=== PATIENT | female | born 1965 | race Caucasian/White ===

== ENCOUNTER 2017-04-23 14:30 | Emergency (ER) | payer SELFPAY ==
[~2017-04-23] VITALS: Ht 172.7 cm; Wt 113.5 kg
[~2017-04-23 14:30] MED LIST: ALPR.5T PO; ALPR1TAB7 PO; BUTA1CAP39 PO; CEFU500T PO; CITA10TA70 PO; CITA20TA7 PO; DCS100C PO; DOXY100T2 PO; ESTR0.9T PO; HYDR-2890 PO; HYDR-3812 PO; HYDR-3820 PO; HYDR1TAB75 PO; IBP800T PO; MUCINEX NASAL SPRAY; RIVA15TA PO; RIVA20TA PO; TRAM50TA2 PO; ZOLP10TA5 PO
[2017-04-23] MEDS ORDERED: CITA20TA12 PO (14:46)
[2017-04-23] MEDS ORDERED: MELA5CAP PO (14:46)
--- NOTE | 2017-04-23 15:04 | ED Lower Extremity ---
General Chief Complaint: Lower Extremity Stated Complaint: RIGHT LEG PAIN,HX OF BLOOD CLOTS Nursing Triage Note: PT CO OF R LOWER EXT PAIN AND BURNING, STATES FEEL TIGHT WHEN WALKING AND A LITTLE SWELLING, STATES HAS HX OF PE AND BLOOD CLOT IN LOWER EXT Nursing Sepsis Screen: No Definite Risk Source: patient Exam Limitations: no limitations History of Present Illness Time seen by provider: 14:52 Initial Comments This 51-year-old white female presents with complaint pain and swelling in right calf similar to previous thrombophlebitis. Patient's lungs has had previous pulmonary emboli. Patient denies trauma, associated fever, paresthesias, or shortness of breath Allergies and Home Medications Allergies Coded Allergies: Sulfa (Sulfonamide Antibiotics) (Unverified Allergy, Unknown, 03/29/15) Home Medications Citalopram Hydrobromide 20 Mg Tablet, 20 MG PO, (Reported) Melatonin 5 Mg Capsule, 5 MG PO, (Reported) Rivaroxaban 20 Mg Tablet, 20 MG PO DAILY, (Reported) Constitutional: No chills, No fever EENTM: No blurred vision Respiratory: No cough, No short of breath Cardiovascular: No chest pain, No palpitations Gastrointestinal: No abdominal pain, No diarrhea, No nausea, No vomiting Genitourinary: no symptoms reported Musculoskeletal: No back pain Skin: no symptoms reported, No change in color, No rash Psychiatric/Neurological: No Symptoms Reported Past Xbaxyug-Yzyoxt-Cbpldd Hx Patient Social History Alcohol Use: Denies Use Recreational Drug Use: No Smoking Status: Former Smoker Type Used: Cigarettes Former Smoker, Quit: Aug 04, 2014 Recent Foreign Travel: No Contact w/Someone Who Travel: No Recent Infectious Disease Expo: No Recent Hopitalizations: No Physical Abuse: No Sexual Abuse: No Surgeries History of Surgeries: Yes (ULNAR NERVE RELEASE) Surgeries: Section, Hysterectomy, Oophorectomy, Orthopedic Respiratory History of Respiratory Disorde: Yes Respiratory Disorders: Pulmonary Embolism Currently Using CPAP: No Currently Using BIPAP: No Cardiovascular History of Cardiac Disorders: No (DVT r leg) Neurological History of Neurological Disord: No Reproductive System Hx Reproductive Disorders: Yes (CHRONIC PELVIC PAIN/MENORRHAGIA-S/P HYST) 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 Gastrointestinal History of Gastrointestinal Di: No Musculoskeletal History of Musculoskeletal Dis: Yes Musculoskeletal Disorders: Chronic Back Pain Endocrine History of Endocrine Disorders: No Cancer History of Cancer: No Psychosocial History of Psychiatric Problem: No Behavioral Health Disorders: Sleep Difficulties, Anxiety, Depression Suicide Risk Score: 0 Integumentary History of Skin or Integumenta: No Blood Transfusions History of Blood Disorders: No Reviewed Nursing Assessment Reviewed/Agree w Nursing PMH: Yes Family Medical History Family Medial History: Cardiovascular disease 19 FATHER (cabg) Hypertension 19 FATHER (htn & hypotention) Kidney disease 19 FATHER (renial failure) Neoplasm 19 FATHER (skin ca) Physical Exam Vital Signs Vital Sign - Last 12Hours 04/23/17 14:35 Temp 97.9 Pulse 73 Resp 18 B/P (MAP) 151/99 Pulse Ox 97 Capillary Refill : Less Than 3 Seconds General Appearance: WD/WN, no apparent distress HEENT: normal ENT inspection Neck: normal inspection Cardiovascular: regular rate, rhythm Respiratory: chest non-tender, lungs clear Gastrointestinal: normal bowel sounds, non tender Back: normal inspection Hips: bilateral hip non-tender, bilateral hip normal inspection, bilateral hip normal range of motion Legs: right leg soft tissue tenderness, right leg swelling Knees: bilateral knee non-tender, bilateral knee normal inspection Ankles: bilateral ankle non-tender, bilateral ankle normal inspection Feet: bilateral foot non-tender, bilateral foot normal inspection Neurologic/Tendon: normal sensation, normal motor functions, normal tendon functions Neurologic/Psychiatric: no motor/sensory deficits, alert, normal mood/affect Skin: warm/dry Lymphatic: no adenopathy Progress/Results/Core Measures Results/Orders My Orders Orders - LUIS CARLOS COOLEY MD Venous Lower Ext Rt (04/23/17 14:42) Vital Signs/I&O Vital Sign - Last 12Hours 04/23/17 14:35 Temp 97.9 Pulse 73 Resp 18 B/P (MAP) 151/99 Pulse Ox 97 Blood Pressure Mean: 116 Progress Note : Time: 15:45 Progress Note Ultrasound of the right leg was unremarkable. I discussed findings with patient. She declined any pain medication or further evaluation. Departure Impression Impression: Primary Impression: Pain in right lower leg Disposition: 01 HOME, SELF-CARE Condition: Unchanged Departure-Patient Inst. Decision time for Depature: 15:46 Referrals: NO,LOCAL PHYSICIAN (PCP) Primary Care Physician Add. Discharge Instructions: Heating pad to the right calf. Ibuprofen and/or Tylenol for pain. Return if any problems or questions. All discharge instructions reviewed with patient and /or family. Voiced understanding. LUIS CARLOS COOLEY MD Apr 23, 2017 15:04
--- NOTE | 2017-04-23 15:37 | Diagnostic Imaging Report ---
EXAMINATION: Right lower extremity duplex venous ultrasound. TECHNIQUE: DVT protocol. Multiple sonographic images with color Doppler and waveform interrogation were performed of the right lower extremity veins with compression and augmentation maneuvers. INDICATION: Right leg pain. FINDINGS: The right lower extremity veins from the groin to below the knee veins were examined with normal color-flow, compressibility and normal waveform demonstrated. The great saphenous vein is patent. IMPRESSION: No evidence of DVT in the right lower extremity. Dictated by: Dictated on workstation # [id number]
[2017-04-23 15:51] VITALS: BP 151/99
== END 2017-04-23 15:51 | disposition home or self-care (01) ==
LOC: EDUNIT# 14:30 → ER 14:33
DX: M79.604 Pain in right leg (principal); F41.9 Anxiety disorder, unspecified; F32.9 Major depressive disorder, single episode, unspecified; Z80.8 Family history of malignant neoplasm of other organs or systems; Z82.49 Family history of ischemic heart disease and other diseases of the circulatory system; Z86.72 Personal history of thrombophlebitis; Z79.01 Long term (current) use of anticoagulants; Z87.891 Personal history of nicotine dependence; Z87.59 Personal history of other complications of pregnancy, childbirth and the puerperium; Z90.710 Acquired absence of both cervix and uterus; Z86.711 Personal history of pulmonary embolism
CPT/HCPCS: 99283

== ENCOUNTER 2017-05-08 21:51 | Emergency (ER) | payer SELFPAY ==
[~2017-05-08] VITALS: Ht 172.7 cm; Wt 113.5 kg
[~2017-05-08 21:51] MED LIST changes: +CITA20TA12 PO; +MELA5CAP PO
--- OUTSIDE RECORDS SUMMARY | 2017-05-08 21:56 | XMS REPORT | Continuity of Care Document ---
Author Author [employer] Organization [facility] Address Unknown Phone Unavailable Care Team Providers Care Sewer Hand Name Role Phone [employer] Unavailable Unavailable Problems Medications Allergies, Adverse Reactions, Alerts Immunizations Results Vital Signs Encounters Location Location Details Encounter Type Encounter Number Reason For Visit Attending Provider ADM Date DC Date Status Source OUTPATIENT [id number] EKATERINA SIM 04/24/20162015 Active [facility] [place] SERIES [id number] LISSETH FRANCO 04/25/[address] [facility] OUTPATIENT [id number] YAMILETH SAUNDERS 09/16/2016 09/16/[address] [facility] Jasvir QUIROZ 05/18/[address] [facility] Procedures Plan of Care Social History Assessment and Plan Family History Value Date Source Advance Directives Order Name Results Value Date Source
--- OUTSIDE RECORDS SUMMARY | 2017-05-08 21:58 | XMS REPORT | Clinical Summary ---
Author Author [facility] Organization [facility] Address Unknown Phone Unavailable Care Team Providers Care Last Trimmer Name Role Phone PCP Unavailable Source Comments Some departments are not documenting in the electronic medical record. If you do not see the information that you expected, contact Release of Information in the Health Information Management department at [phone] for further assistance in locating additional records.[facility] Allergies Active Allergy Reactions Severity Noted Date Comments Sulfa (Sulfonamide HIVES, RASH Medium 04/05/2016 Antibiotics) Venlafaxine VOMITING Low 04/05/2016 Current Medications Prescription Sig. Disp. Refills Start End Date Status Date atorvastatin (LIPITOR) 40 Take 1 Tab by mouth 90 Tab 3 04/08/20 Active mg tablet daily. 16 melatonin 10 mg tab Take by mouth as Needed. Active citalopram (CELEXA) 10 mg Take 1 Tab by mouth 90 Tab 3 09/17/19 Active tablet daily. 17 rivaroxaban (XARELTO) 20 Take 1 Tab by mouth 90 Tab 3 09/23/19 Active mg tablet daily. Take with food. 17 Active Problems Problem Noted Date Dysuria 09/16/2016 History of deep venous thrombosis 04/24/2016 History of pulmonary embolism 04/24/2016 Overview: -On Xarelto, may need to switch to warfarin--will await hematology recs regarding anticoagulation moving forward if she does have APLS Chest pain on breathing 04/24/2016 Overview: -Given hx of PE after having similar presentation, will get CTA chest today to r/o recurrence of PE Hx of renal impairment 04/24/2016 Overview: -Cr increased while inpatient, was still 1.22 at time of discharge -Repeat BMP with UA on 04/24 to ensure resolution Visual field defect 04/24/2016 Overview: -Pt having numerous visual complaints -Consult placed for pt to see Dr. Clay for neuro-ophthalmology L ast Assessment & Plan: -Pt still having numerous visual complaints -Consult placed at last visit for pt to see Dr. Clay for neuro-ophthalmology, pt to schedule this appointment [facility]ORRI Antiphospholipid antibody syndrome (HCC) 04/21/2016 Overview: -Elevated antiphospholipid ab at 72. -Pt scheduled to see hematology for further eval 04-25-16-First heme clinic visit. Her complex history and labs support the diagnosis of APL syndrome though we do not have baseline labs from the time she had DVT/PE in September or October of this year. Nonetheless the evidence to me is overwhelming and I believe the diagnosis is correct. I advised her to stay on Xarelto even though we don't have complete studies showing the new generation of anticoagulants are non-inferior to warfarin in this setting. She hates warfarin and states her symptoms are better on Xarelto so for now I would leave her on it. I told her if she develops new evidence for venous thromboembolism and new RECORDS CLERK symptoms I would add ASA or plavix and consider switching her to warfarin. She will be following up with rheumatology to see if she fits any other defined syndrome for which immunosuppression might be indicated. L ast Assessment & Plan: -following in hematology clinic >Continue Xarelto Obesity, Class II, BMI 35-39.9 04/09/2016 Hypercholesteremia 04/08/2016 Overview: -Lipids 03/2016: Total chol 188, LDL 122, HDL 40, trig 122 -Atorvastatin 40mg L ast Assessment & Plan: -Lipids 03/2016: Total chol 188, LDL 122, HDL 40, trig 122 -Continue Atorvastatin 40mg Stroke (cerebrum) (FORM[facility]LY [facility]) 04/05/2016 Overview: -On Atorvastatin 40mg -BP well-controlled -Carotid u/s, echo, MRA head/neck unremarkable -has f/u with neurology on 05/09 Resolved Problems Problem Noted Date Resolved Date DVT (deep venous thrombosis) ([facility]) 04/08/2016 Encounters Date Type Specialty Care Team Description 04/23/2017 Telephone General Internal Medicine Vanessa Cunha MD Triage from Last 3 Months Immunizations Name Dates Previously Given Next Due Flu Vaccine 04/24/2016 Quadrivalent=>3 Yo (Preservative Free) Family History Medical History Relation Name Comments Heart Disease Father Kidney Disease Father Hypertension Mother Relation Name Status Comments Father Mother Social History Tobacco Use Types Packs/Day Years Used Date Former Smoker 04/24/2010 - 04/24/2015 Smokeless Tobacco: Never Used Alcohol Use Drinks/Week oz/Week Comments No 0 Standard 0.0 drinks or equivalent Sex Assigned at Date Recorded Not on file Last Filed Vital Signs Vital Sign Reading Time Taken Blood Pressure 147/88 09/16/2016 1:10 PM CDT Pulse 68 09/16/2016 1:10 PM CDT Temperature 36.4 C (97.5 F) 09/16/2016 1:10 PM CDT Respiratory Rate 16 09/16/2016 1:10 PM CDT Oxygen Saturation 98% 09/16/2016 1:10 PM CDT Inhaled Oxygen - - Concentration Weight 122.7 kg (270 lb 6.4 oz) 09/16/2016 1:10 PM CDT Height 175.3 cm (5' 9") 09/16/2016 1:10 PM CDT Body Mass Index 39.93 09/16/2016 1:10 PM CDT Plan of Treatment Health Maintenance Due Date Last Done Comments PERTUSSIS VACCINE 11/22/1978 TETANUS VACCINE 11/22/1984 BREAST CANCER SCREENING 2007 INFLUENZA VACCINE 01/20/2017 04/24/2016, 04/24/2016 PHYSICAL (COMPREHENSIVE) 04/24/2017 04/24/2016 EXAM Results Not on filefrom Last 3 Months
--- OUTSIDE RECORDS SUMMARY | 2017-05-08 21:58 | XMS REPORT | Encounter Summary ---
Author Author [facility] Organization [facility] Address Unknown Phone Unavailable Care Team Providers Care Clerical Adviser Name Role Phone PCP Unavailable Reason for Visit * Reason Comments Triage Encounter Details Date Type Department Care Team Description 04/23/2017 Telephone [facility] Vanessa Cunha MD Triage Physicians - Internal [address] [facility] [place] [address] [address]LO[address] [phone] [id number] [facility] [place] [address] Social History Tobacco Use Types Packs/Day Years Used Date Former Smoker 04/24/2010 - 04/24/2015 Smokeless Tobacco: Never Used Alcohol Use Drinks/Week oz/Week Comments No 0 Standard 0.0 drinks or equivalent Sex Assigned at Date Recorded Not on file as of this encounter Functional Status Functional Status Response Date of Assessment Does the patient have a hearing impairment: No 04/25/2016 Does the patient have a visual impairment: No 04/25/2016 Does the patient have impaired ambulation: No 04/25/2016 Does the patient have an activity of daily living No 04/25/2016 (ADL) impairment: Does the patient have an instrumental activity of No 04/25/2016 daily living (IADL) impairment: Cognitive Status Response Date of Assessment Does the patient have a cognitive impairment: No 04/25/2016 as of this encounter Miscellaneous Notes * Telephone Encounter - Shayy Jenkins LPN - 04/24/2017 2:55 PM CDT Contacted patient to follow-up. Patient stated she was evaluated in the ER and they did an ultra sound and no blood clot was found. Patient is still concerned with pain in her leg when she walks. Advised patient to make a follow-up visit to be evaluated in clinic. Patient agreed to be transferred to [facility] to set -up appointment. Routing to Dr. Cunha to inform. Shayy Jenkins LPN * Telephone Encounter - Vanessa Cunha MD - 04/23/2017 10:32 PM CDT Agree with recommendation to seek local ER evaluation. Thank you, Vanessa Cunha MD * Telephone Encounter - Shayy Jenkins LPN - 04/23/2017 2:07 PM CDT Pt LVM stating her history of PE, antiphospholipids syndrome DVT and stroke. Pt stated symptoms as follows: "Trouble with leg, don't know if I should go to ER in [place], don't know what to do. I am currently on xarelto. I cant walk very far before it starts hurting, not really swollen, gets real hard when I walk far and toes go numb. On the back side its really warm After last time scared to let it go to long." Patient requesting return call from nurse to advise. Returned patient call and advised patient to be seen in the ER. Inquired how long these symptoms have been going on and pt stated the past week but have worsened in the last couple of days. Patient denied swelling in the leg but stated "it gets real tight." Pt agreed to go to the emergency room to be evaluated. Pt inquired if she should come to [facility] or go to ER in [place]. Advised patient to go to ER in [place], as it is much closer. Gave patient nurse line to call back with any concerns. Pt verbalized understanding and no further questions at this time. Routing to Dr. Cunha to inform. Shayy Jenkins LPN in this encounter Plan of Treatment Not on fileas of this encounter Visit Diagnoses Not on filein this encounter
--- NOTE | 2017-05-08 22:14 | ED Lower Extremity ---
General Chief Complaint: Lower Extremity Stated Complaint: RT ANKLE INJ Nursing Triage Note: stepped off porch and twisted L ankle. Nursing Sepsis Screen: No Definite Risk Source: patient Exam Limitations: no limitations History of Present Illness Time seen by provider: 22:13 Initial Comments To ER with reports of left lateral ankle pain and right great toe pain. This began this evening when she stepped down off of her porch and twisted her ankle and felt a popping sensation. Onset: just prior to arrival Severity: moderate Pain/Injury Location: left ankle Method of Injury: fell, twisted Modifying Factors: Worse With Movement Allergies and Home Medications Allergies Coded Allergies: Sulfa (Sulfonamide Antibiotics) (Unverified Allergy, Unknown, 03/29/15) Home Medications Citalopram Hydrobromide 20 Mg Tablet, 20 MG PO, (Reported) Melatonin 5 Mg Capsule, 5 MG PO, (Reported) Rivaroxaban 20 Mg Tablet, 20 MG PO DAILY, (Reported) Constitutional: see HPI EENTM: see HPI Respiratory: no symptoms reported Cardiovascular: no symptoms reported Genitourinary: no symptoms reported Musculoskeletal: see HPI Skin: no symptoms reported Psychiatric/Neurological: No Symptoms Reported Past Nqiscok-Onjcdt-Cifmud Hx Patient Social History Alcohol Use: Denies Use Recreational Drug Use: No Smoking Status: Former Smoker Type Used: Cigarettes Former Smoker, Quit: Aug 04, 2014 Recent Foreign Travel: No Contact w/Someone Who Travel: No Recent Infectious Disease Expo: No Recent Hopitalizations: No Physical Abuse: No Sexual Abuse: No Surgeries History of Surgeries: Yes (ULNAR NERVE RELEASE) Surgeries: Section, Hysterectomy, Oophorectomy, Orthopedic Respiratory History of Respiratory Disorde: Yes Respiratory Disorders: Pulmonary Embolism Currently Using CPAP: No Currently Using BIPAP: No Cardiovascular History of Cardiac Disorders: No (DVT r leg) Neurological History of Neurological Disord: No Reproductive System Hx Reproductive Disorders: Yes (CHRONIC PELVIC PAIN/MENORRHAGIA-S/P HYST) 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 Gastrointestinal History of Gastrointestinal Di: No Musculoskeletal History of Musculoskeletal Dis: Yes Musculoskeletal Disorders: Chronic Back Pain Endocrine History of Endocrine Disorders: No Cancer History of Cancer: No Psychosocial History of Psychiatric Problem: No Behavioral Health Disorders: Sleep Difficulties, Anxiety, Depression Suicide Risk Score: 0 Integumentary History of Skin or Integumenta: No Blood Transfusions History of Blood Disorders: No Family Medical History Family Medial History: Cardiovascular disease 19 FATHER (cabg) Hypertension 19 FATHER (htn & hypotention) Kidney disease 19 FATHER (renial failure) Neoplasm 19 FATHER (skin ca) Physical Exam Vital Signs Vital Sign - Last 12Hours 05/08/17 22:04 Temp 98.0 Pulse 88 Resp 20 B/P (MAP) 131/92 Pulse Ox 95 Capillary Refill : Less Than 3 Seconds General Appearance: WD/WN, no apparent distress HEENT: PERRL/EOMI, normal ENT inspection Neck: non-tender, full range of motion Respiratory: normal breath sounds, no respiratory distress, no accessory muscle use Gastrointestinal: normal bowel sounds, non tender, soft Hips: bilateral hip non-tender, bilateral hip normal inspection, bilateral hip normal range of motion Legs: bilateral leg non-tender, bilateral leg normal inspection, bilateral leg normal range of motion Knees: bilateral knee non-tender, bilateral knee normal inspection, bilateral knee normal range of motion Ankles: left ankle soft tissue tenderness, left ankle swelling, left ankle other (distally she is neurovascularly intact) Feet: right foot other (a bit of ecchymosis over the right first MTP joint) Neurologic/Psychiatric: alert, normal mood/affect, oriented x 3 Skin: normal color, warm/dry Progress/Results/Core Measures Results/Orders My Orders Orders - TIFFANIE TA APRN Tibia/Fibula, Left, 2 Views (05/08/17 22:07) Ankle, Left, 3 Views (05/08/17 22:07) Foot, Right, 3 View (05/08/17 22:07) Ibuprofen Tablet (Motrin Tablet) (05/08/17 22:15) Vital Signs/I&O Vital Sign - Last 12Hours 05/08/17 22:04 Temp 98.0 Pulse 88 Resp 20 B/P (MAP) 131/92 Pulse Ox 95 Blood Pressure Mean: 105 Departure Communication (Admissions) Progress Notes Closed avulsion fracture distal left fibula. Impression Impression: Primary Impression: Avulsion fracture of distal fibula Disposition: 01 HOME, SELF-CARE Condition: Stable Departure-Patient Inst. Decision time for Depature: 22:38 Referrals: NO,LOCAL PHYSICIAN (PCP/Family) Primary Care Physician Add. Discharge Instructions: 1. Return to ER for any concerns 2. Follow-up with your doctor next week 3. Wear the boot for the next 2 weeks. Use the crutches as needed for pain with walking. When you're able to walk without using crutches you may do so. Elevate the leg to help reduce swelling. Use an ice pack at 30 minute intervals for the first 24 hours. All discharge instructions reviewed with patient and/or family. Voiced understanding. TIFFANIE TA APRN May 08, 2017 22:14
[2017-05-08] MEDS ORDERED: IBUPROFEN 800 MG (MOTRIN) TAB PO ONE (22:15)
[2017-05-08 22:50] VITALS: BP 131/92
--- NOTE | 2017-05-09 07:42 | Diagnostic Imaging Report ---
INDICATION: Fall. FINDINGS: There is a small avulsion fracture along the tip of the fibula with soft tissue swelling over the lateral malleolus. The tibia and fibula are otherwise intact. Ankle and knee show good alignment. IMPRESSION: Small avulsion fracture tip of the fibula. Dictated by: Dictated on workstation # [id number]
--- NOTE | 2017-05-09 07:43 | Diagnostic Imaging Report ---
INDICATION: Trauma. FINDINGS: There is a small avulsion injury along the tip of the fibula which is mildly displaced. There is considerable soft tissue swelling over lateral malleolus. Ankle mortise in good alignment. Articulating surfaces are smooth. Talar plafond appears normal. IMPRESSION: Minimally displaced avulsion injury of the tip of the fibula with large amount of soft tissue swelling. Dictated by: Dictated on workstation # [id number]
--- NOTE | 2017-05-09 07:46 | Diagnostic Imaging Report ---
INDICATION: Fall. Medial foot pain. FINDINGS: 3 views show no fractures or dislocations. There is mild hallux valgus of the first metatarsal. Arthritic changes of the first MP joint. There is small calcaneal bone spur at the plantar fascial attachment. IMPRESSION: 1. Degenerative changes as described with no acute abnormalities. Dictated by: Dictated on workstation # [id number]
== END 2017-05-08 22:50 | disposition home or self-care (01) ==
LOC: EDUNIT# 21:51 → ER 21:52
DX: S82.832A Other fracture of upper and lower end of left fibula, initial encounter for closed fracture (principal); F41.9 Anxiety disorder, unspecified; F32.9 Major depressive disorder, single episode, unspecified; Z90.710 Acquired absence of both cervix and uterus; Z86.711 Personal history of pulmonary embolism; Z87.59 Personal history of other complications of pregnancy, childbirth and the puerperium; Z87.891 Personal history of nicotine dependence; W17.89XA Other fall from one level to another, initial encounter; X50.0XXA Overexertion from strenuous movement or load, initial encounter; Y92.008 Other place in unspecified non-institutional (private) residence as the place of occurrence of the external cause
CPT/HCPCS: 73590; 73610; 73630; 99283

== ENCOUNTER 2021-01-02 13:24 | Outpatient (RCR) | payer OTHER ==
[~2021-01-02 13:24] MED LIST changes: +ACHD5005 PO; +ACHYD1T PO; -CITA20TA7 PO; +CITA20TA9 PO; -HYDR-3812 PO; -HYDR-3820 PO; -RIVA15TA PO; +RIVA15TA2 PO; -RIVA20TA PO; +RIVA20TA2 PO; -TRAM50TA2 PO; +TRM50T PO
== END 2021-01-04 14:57 | disposition home or self-care (01) ==
LOC: ONC 13:24
PROVIDERS: ATTEND Internal Medicine Hematology & Oncology
DX: Z86.711 Personal history of pulmonary embolism (principal); Z79.01 Long term (current) use of anticoagulants
CPT/HCPCS: 99214

== ENCOUNTER 2022-10-08 12:20 | Emergency (ER) | payer SELFPAY ==
[~2022-10-08] VITALS: Ht 173 cm; Wt 115.0 kg
[2022-10-08 12:20] VITALS: BP 205/59
[2022-10-08] MEDS ORDERED: EPINEPHrine 0.1 MG/ML 10 ML (HOSPIRA) SYR IJ ONE (12:23)
[2022-10-08] MEDS ORDERED: NALOXONE 2 MG/2 ML (NARCAN) SYR IV ONE (12:23)
--- NOTE | 2022-10-08 12:48 | ED CPR ---
HPI-CPR General Chief Complaint: Code Blue Stated Complaint: CODE TAMMIE History of Present Illness Date Seen by Provider: Oct 08, 2022 Time Seen by Provider: 12:20 Initial Comments 56-year-old female was brought in by her mom. Mom reports that when they were at home she walked out that her chest hurts she is having hard time breathing. They live approximately [place] away. In route to the hospital patient collapsed and became nonresponsive. Upon arrival to the hospital patient was found to be nonresponsive and pulseless. CPR was initiated with patient in the car. It is estimated that patient went approximately 10 minutes nonresponsive. It took approximately 5 minutes to get patient the car with CPR being performed in the car. Upon arrival into the ER patient was placed on the monitor and found to be in asystole and pulseless. CPR was continued with a 20-gauge placed. Patient ended up receiving 4 rounds of epinephrine along with some Narcan. She remained in asystole and pulseless throughout CPR. Bedside ultrasound showed no cardiac activity. CPR was performed for approximately 20 minutes while in the ER with no return to spontaneous circulation. Patient was then declared at approximately 1241. After CPR was performed and family arrived. They did notify us that she was on "suicide watch" we will contact [facility] to determine if they would like to perform an autopsy. Allergies and Home Medications Allergies Coded Allergies: Sulfa (Sulfonamide Antibiotics) (Unverified Allergy, Unknown, 03/29/15) Patient Home Medication List Home Medication List Reviewed: Yes Citalopram Hydrobromide (Celexa) 20 Mg Tablet, 20 MG PO, (Reported) Entered as Reported by: SINTIA ATKINSON on 04/23/17 144 Melatonin (Melatonin) 5 Mg Capsule, 5 MG PO, (Reported) Entered as Reported by: SINTIA ATKINSON on 04/23/17 1446 Rivaroxaban (Xarelto Tablet) 20 Mg Tablet, 20 MG PO DAILY, (Reported) Entered as Reported by: JESSICA STERLING on 02/13/16 0620 Review of Systems Review of Systems Constitutional: see HPI Other Comments CPR in progress please see HPI Past Qgnfsha-Lckstv-Jfbotl Hx Past Medical History Surgeries: Yes (ULNAR NERVE RELEASE) Section, Hysterectomy, Oophorectomy, Orthopedic Respiratory: Yes Pulmonary Embolism Currently Using CPAP: No Currently Using BIPAP: No Cardiac: No (DVT r leg) Neurological: No Reproductive Disorders: Yes (CHRONIC PELVIC PAIN/MENORRHAGIA-S/P HYST) [employer] History: Hysterectomy Gastrointestinal: No Musculoskeletal: Yes Chronic Back Pain Endocrine: No Cancer: No Psychosocial: No Sleep Difficulties, Anxiety, Depression Integumentary: No Blood Disorders: No Family Medical History Cardiovascular disease 19 FATHER (cabg) Hypertension 19 FATHER (htn & hypotention) Kidney disease 19 FATHER (renial failure) Neoplasm 19 FATHER (skin ca) Physical Exam Vital Signs Capillary Refill : Height, Weight, BMI Height: 5'8.00" Weight: 250lbs. 2.0oz. [id number]; 30.4 BMI Method:Stated General Appearance: Other (CPR in progress please see CPR flow chart) Progress/Results/Core Measures Progress Progress Note : Progress Note Please see HPI for complete note. Patient with cardiac arrest of unknown etiology. Critical Care Note Critical Care Start Time: 12:20 Total Time (minutes) 20 Date of : Oct 08, 2022 Time of : 12:41 Progress Patient with no return of spontaneous circulation Departure Impression Primary Impression: Cardiac arrest Disposition: 20 Condition: Departure-Patient Inst. Referrals: NO,LOCAL PHYSICIAN (PCP/Family) Primary Care Physician CHANTEL PEARL DO Oct 08, 2022 12:48
== END 2022-10-08 16:00 | disposition expired ==
LOC: EDUNIT# 12:21 → ER 12:22
DX: I46.9 Cardiac arrest, cause unspecified (principal)
CPT/HCPCS: 99291